=== PATIENT | male | born 1935 | race Hispanic/Latino ===

== ENCOUNTER 2019-03-04 10:03 | Emergency (ER) | payer MEDICARE, OTHER ==
[~2019-03-04] VITALS: Ht 160 cm; Wt 81.8 kg
[~2019-03-04 10:03] MED LIST: ARICEPT10 MG PO; BUTALBITAL/ACETAMIN1 PO; CEFEPIME1 G2 IV; CEFEPIME1 GM IV; CENTRUM SILVER PO; CIPROFLOXACN500 MG PO; CLONAZEPAM0.5 M1 PO; PROSCAR5 MG PO; RISPERDAL0.5 MG PO; ULTRAM50 M1 PO; ZOFRAN ODT4 MG PO
[2019-03-04] MEDS ORDERED: NAPROSYN500 MG PO (12:29)
[2019-03-04 12:52] VITALS: BP 164/95
== END 2019-03-04 13:15 | disposition home or self-care (01) ==
LOC: ED 10:03
PROC: 2W38X1Z Immobilization of Right Upper Extremity using Splint (ICD-10-PCS; principal; 2019-03-04)
DX: S49.001A Unspecified physeal fracture of upper end of humerus, right arm, initial encounter for closed fracture (principal); S42.291A Other displaced fracture of upper end of right humerus, initial encounter for closed fracture; F03.90 Unspecified dementia, unspecified severity, without behavioral disturbance, psychotic disturbance, mood disturbance, and anxiety; W18.30XA Fall on same level, unspecified, initial encounter; Y92.002 Bathroom of unspecified non-institutional (private) residence as the place of occurrence of the external cause

== ENCOUNTER 2020-10-18 19:26 | Inpatient (IN) | payer MEDICARE, MEDICAID ==
[~2020-10-18] VITALS: Ht 160 cm; Wt 77.6 kg
[~2020-10-18 19:26] MED LIST changes: +NAPROSYN500 MG PO
--- NOTE | 2020-10-18 19:26 | NUR ---
PATIENT TO ROOM 9 [facility] STRETCHER. PATIENT WITH EYES CLOSED, RESPONDS TO STIMULI AND PAIN, PATIENT ABLE TO SPEAK BUT NOT WHEN ASKED QUESTIONS. TRIAGE COMPLETED AT BEDSIDE TO BEST OF RN ABILITY.
[2020-10-18 20:09] LABS: HEMATOCRIT 40.6 % (39.0-50.0); HEMOGLOBIN 13.2 g/dl (14.0-18.0); IMMATURE GRANULOCYTES 0.8 % (0.0-5.0); MEAN CELL VOLUME 92.9 fL CALC (80.0-100.0); MEAN CORPUSCULAR HGB 30.2 pG CALC (26.0-32.0); MEAN CORPUSCULAR HGB CONC 32.5 g/dL CAL (32.0-36.0); NEUT# 16.02 thou/uL (1.82-7.42); RED BLOOD COUNT 4.37 mill/uL (4.70-6.10); RED CELL DISTRI WIDTH 12.7 % (11.5-15.5)
--- NOTE | 2020-10-18 20:22 | NUR ---
PATIENT RETURNS FROM RADIOLOGY. ABG DRAWN IN RADIOLOGY. FAMILY AT BEDSIDE.
[2020-10-18 20:27] LABS: ALBUMIN 3.9 g/dL (3.2-5.0); ALKALINE PHOSPHATASE 82 u/l (38-126); BILIRUBIN, TOTAL 0.6 mg/dL (0.0-1.4); BUN 44 mg/dL (8-23); BUN/CREATININE RATIO 24 (12-20 (CALC)); CHLORIDE 106 mmol/l (95-108); CREATININE 1.8 mg/dL (0.7-1.3); ETHYL ALCOHOL 0 mg/dl (0-30); GFR 36 ML/MIN (>=60 (CALC)); GFR FOR AFR.AMER. 44 ML/MIN (>=60 (CALC)); POTASSIUM 4.2 mmol/l (3.5-5.1); SGOT/AST 26 u/l (19-48); SODIUM 139 mmol/l (137-146); TOTAL PROTEIN 7.2 g/dL (6.3-8.2)
[2020-10-18 20:34] LABS: ANION GAP 15 (6-22 (CALC)); CARBON DIOXIDE 22 mmol/l (22-30)
[2020-10-18 20:38] LABS: MYOGLOBIN 253 ng/mL (0 - 121)
--- NOTE | 2020-10-18 23:18 | NUR ---
REPORT TO NURSE JESSICA, MED-SURG.
--- NOTE | 2020-10-18 23:33 | NUR ---
SON WENT HOME. ADVISED OF COVID VISITING RESTRICTIONS. REQUESTED THAT HE CALL WITH LIST OF HOME MEDICATIONS. GIVEN NUMBER TO CALL. PT TO FLOOR VIA STRETCHER WITH POCKET MONITOR AND O2 AT 2 LPM NC. PT TRANSFERRED TO BED WITH 4 STAFF.
[2020-10-19 01:00] VITALS: BP 119/53
--- NOTE | 2020-10-19 03:17 | NUR ---
PT ARRIVE TO [facility] APPROX 2350. PT IS ALERT TO PAIN AND VOICE. CONFUSION NOTED. NOT DISTRESS OF SOB NOTED. PT UNABLE TO ANSWER QUESTION APPROPRIATELY. LUNGS SOUNS DIMISHED. ABDOMEN DISTENDED HYPOTENSIVE BOWEL SOUNDS. UPPER AND LOWER PULSES PRESENT. MIN EDEMA NOTED IN BILAT EXTREM. AGED SCAB ON LEFRT LOWER LEG. BRUISING NOTED BILATERAL FOREARMS. PT INCONT OF BOWEL AND BLADDER. BED IN LOWEST POSITON BED ALARM ACTIVED. CALL LIGHT IN REACH. WILL MONITOR.
[2020-10-19 05:20] VITALS: BP 128/57
[2020-10-19 06:21] LABS: HEMATOCRIT 37.8 % (39.0-50.0); HEMOGLOBIN 11.9 g/dl (14.0-18.0); IMMATURE GRANULOCYTES 1.3 % (0.0-5.0); MEAN CELL VOLUME 94.5 fL CALC (80.0-100.0); MEAN CORPUSCULAR HGB 29.8 pG CALC (26.0-32.0); MEAN CORPUSCULAR HGB CONC 31.5 g/dL CAL (32.0-36.0); NEUT# 18.32 thou/uL (1.82-7.42); RED CELL DISTRI WIDTH 12.8 % (11.5-15.5)
[2020-10-19 06:37] LABS: ALBUMIN 3.2 g/dL (3.2-5.0); BILIRUBIN, TOTAL 0.6 mg/dL (0.0-1.4); CREATININE 1.6 mg/dL (0.7-1.3); POTASSIUM 4.6 mmol/l (3.5-5.1)
[2020-10-19 07:48] VITALS: BP 134/71
--- NOTE | 2020-10-19 07:48 | NUR ---
RECIEVED REPORT FROM YOSHI SCANLON. PT RESTING IN SEMI FOWLERS POSITION TRYING TO GET OUT OF BED UPON ENTERING ROOM. INTRODUCED SELF TO PT AND DISCUSSED POC. PT IS A/O X1 AND DOES ANSWER VERY FEW QUESTIONS.ASSESSMENT AND VITALS COMPLETED. BP 134/71, HR 104, O2 95% ON 2L NC. RESPIRATIONS ARE EVEN AND UNLABORED.NONPRODUCTIVE COUGH NOTED. HEART RHYTHM NORMAL WITH TELE IN PLACE, SR PER ER MONITORING. BOWEL SOUNDS ARE ACTIVE IN ALL QUADRANTS, LAST REPORTED BM IS UNKNOWN. #22G IN LEFT HAND RUNNING WITH IVF PER ORDER, SITE APPEARS HEALTHY AND PATENT. PT INCONTINENT OF URINE, JILL CARE PROVIDED BY INTERNATIONAL ACCOUNT REPRESENTATIVE AND JR MUNOZ. NO SIGNS OF ANY PAIN OR DISCOMFORTS AT THIS TIME. ALL SAFETY AND ISOLATION PRECAUTIONS ARE IN PLACE WITH BED ALARM ACTIVATED. WILL CONTINUE TO MONITOR.
[2020-10-19] MEDS ORDERED: CLONAZEPAM1 M1 PO (10:31)
[2020-10-19] MEDS ORDERED: PROSCAR5 MG PO (10:32)
[2020-10-19] MEDS ORDERED: NAMENDA10 MG PO (10:33)
[2020-10-19] MEDS ORDERED: RIVASTIGMINE T4.5 MG PO (10:35)
--- NOTE | 2020-10-19 10:35 | NUR ---
DAUGHTER CALLED FOR UPDATE. PASSCODE PROVIDED. RECORDS OF HOME MEDICATIONS OBTAINED.
[2020-10-19 11:45] VITALS: BP 136/96
--- NOTE | 2020-10-19 12:22 | NUR ---
PT SLEEPING IN LOW FOWLERS POSITION. REPSIRATIONS ARE EVEN AND UNLABORED ON 2L NC. PT CONTINUE TO REMOVED OXYGEN, REAPPLIED.TELE MONITORING IN PLACE, SR PER ER MONITORING. IVF INFUSING PER ORDER, SITE APPEARS HEALTHY AND PATENT. NO SIGNS OF ANY PAIN OR DISCOMFORTS. ALL SAFETY PRECAUTIONS ARE IN PLACE WIHT CALL LIGHT IN REACH. WILL CONTINUE TO MONITOR
--- NOTE | 2020-10-19 12:58 | NUR ---
DR MALONEY AT BEDSIDE
[2020-10-19 14:28] LABS: URINE BILIRUBIN - DIPSTICK NEGATIVE (NEGATIVE); URINE BLOOD DIPSTICK TRACE-INTACT (NEGATIVE); URINE COLOR YELLOW; URINE GLUCOSE - DIPSTICK NEGATIVE (NEGATIVE); URINE KETONE NEGATIVE (NEGATIVE); URINE LEUK ESTERASE NEGATIVE (NEGATIVE); URINE NITRITE - DIPSTICK NEGATIVE (Negative); URINE PH 6.5 (4.5-8.0); URINE PROTEIN - DIPSTICK NEGATIVE (NEG-TRACE); URINE UROBILINOGEN - DIPSTICK 0.2 E.U./dL (0.2)
--- NOTE | 2020-10-19 15:00 | NUR ---
URINE SAMPLE COLLECTED AND SENT TO LAB
--- NOTE | 2020-10-19 15:05 | NUR ---
ATTEMPTED TO START NEW IV. UNSUCCESSFUL X2. PT TOLERATED WELL. #20G IN LEFT HAND REMAINS. IVF INFUSING PER ORDER, SITE APPEARS HEALTHY AND PATENT.
[2020-10-19 15:30] VITALS: BP 136/75
--- NOTE | 2020-10-19 15:34 | NUR ---
PT SLEEPING IN SEMI FOWLERS POSITION. REPSIRATIONS ARE EVEN AND UNLABORED ON 2L NC. PT CONTINUE TO REMOVED OXYGEN TUBING. NURSING STAFF CONTINUE TO REAPPLY. IVF INFUSING PER ORDER, SITE APPEARS HEALTHY AND PATENT, SITE APPEARS HEALTHY AND PATENT. NO SIGNS OF ANY PAINS OR DISCOMFORTS. ALL SAFETY AND ISOLATION PRECAUTIONS ARE IN PLACE WIHT BED ALARM ACTIVATED. WILL CONTINUE TO MONITOR
[2020-10-19 19:30] VITALS: BP 130/73
--- NOTE | 2020-10-19 20:03 | NUR ---
PHYSICAL ASSESMENT COMPLETE. PT CURRENTLY DENIES PAIN OR DISCOMFORT. SCHEDULED MEDICATIONS AND PRN MEDICATION ADMINISTERED, SEE E-MAR. PT DENIES ANY NEEDS AT THIS TIME. PT ONLY ALERT TO SELF.ITEMS WITHIN REACH, BED LOCKED IN LOW POSITION W/ BEDRAILS UP X2. CALL RAYMOND WITHIN REACH, AGREES TO CALL PRN.
--- NOTE | 2020-10-20 00:03 | NUR ---
PT LAYING IN BED WITH EYES CLOSED, APPEARS TO BE SLEEPING, APPEARS COMFORTABLE AND IN NO DISTRESS. RESPIRATIONS REGULAR AND UNLABORED. ITEMS REMAIN WITHIN REACH, CALL RAYMOND REMAINS WITHIN REACH. BED REMAINS LOCKED AND IN LOW POSITION WITH BEDRAILS UP X2. WILL CONTINUE TO MONITOR.
[2020-10-20 00:28] VITALS: BP 133/70
--- NOTE | 2020-10-20 04:03 | NUR ---
PT RESTING IN BED, NO SIGNS OF DISTRESS NOTED, RESP EVEN AND UNLABORED. PT VOICES NO NEEDS OR COMPLAINTS AT THIS TIME. CALL LIGHT IN REACH, CONTINUE TO MONITOR.
[2020-10-20 04:10] VITALS: BP 135/64
[2020-10-20 05:00] LABS: HEMOGLOBIN 12.4 g/dl (14.0-18.0); IMMATURE GRANULOCYTES 1.6 % (0.0-5.0); MEAN CORPUSCULAR HGB 29.9 pG CALC (26.0-32.0); MEAN CORPUSCULAR HGB CONC 31.8 g/dL CAL (32.0-36.0); NEUT# 6.54 thou/uL (1.82-7.42); RED BLOOD COUNT 4.15 mill/uL (4.70-6.10); RED CELL DISTRI WIDTH 12.8 % (11.5-15.5)
[2020-10-20 05:11] LABS: ALBUMIN 3.3 g/dL (3.2-5.0); BILIRUBIN, TOTAL 0.5 mg/dL (0.0-1.4); CREATININE 1.4 mg/dL (0.7-1.3); POTASSIUM 4.4 mmol/l (3.5-5.1); TOTAL PROTEIN 6.4 g/dL (6.3-8.2)
[2020-10-20 05:22] LABS: C-REACTIVE PROTEIN 17.7 mg/dL (0-0.9)
[2020-10-20 07:48] VITALS: BP 133/56
--- NOTE | 2020-10-20 07:48 | NUR ---
RECIEVED REPORT FROM YOSIH FITZGERALD. PT RESTING IN SEMI FOLWERS POSITION UPON ENTERING ROOM. INTRODUCED SELF TO PT AND DISCUSSED POC. PT IS A/O X1 BUT CONFUSED. ASSESSMENT AND VITALS COMPLETED. BP 133/56, HR 97, O2 97% ON ROOM AIR. 2L NC AT BEDSIDE PRN. RESPIRATIONS ARE EVEN AND UNLABORED WITH NO SIGNS OF DISTRESS NOTED. HEART RHYTHM IS NORMAL WITH TELE IN PLACE, SR PER ER MONITORING. BOWEL SOUNDS ARE ACTIVE IN ALL QUADRANTS, LAST REPORTED BM IS UNKNOWN. RADIAL PEDAL PULSES ARE STRONG. #20G EMS IN LEFT HAND RUNNING WITH PER ORDER, SITE APPEARS HEALTHY AND PATENT. SITE DUE TO BE CHANGED TODAY.MULITPLE SMALL ABRASION THROUGH BODY NOTED. SKIN REMAINS WARM DRY AND INTACT. PT DENIES OF ANY PAINS OR DISOCMFORTS AST THIS TIME.ALL SAFETY AND ISOLATION P[RECAUTIONS ARE IN PLACE WIHT CALL LIGHT IN REACH. WILL CONTINUE TO MONITOR
--- NOTE | 2020-10-20 10:38 | NUR ---
ATTEMPTED TO CALL DAUGHTER TO NOTIFIED OF HOME MEDICATION RIVASTIGMINE. NO ANSWER. WILL ATTEMPT AGAIN LATER IN AFTERNOON
--- NOTE | 2020-10-20 10:50 | NUR ---
DR WORKMAN AT BEDSIDE. YI ORTIZ OT TRANSLATE.
--- NOTE | 2020-10-20 11:00 | NUR ---
FAMILY CONTACTED ABOUT HOME MEDICATION THAT WAS NEEDED TO BROUGHT IN. FAMILY VERBALIZED UNDERSTANDING.
--- NOTE | 2020-10-20 11:38 | NUR ---
HOME MEDICATION BROUGHT TO HOSPITAL. MEDICATION SENT TO PHARMACY.
[2020-10-20 12:00] VITALS: BP 128/70
[2020-10-20 16:00] VITALS: BP 131/66
--- NOTE | 2020-10-20 16:09 | NUR ---
CERTIFIER NOTFIED OF TELE MONITORING NO WORKING. NEW LEADS OBTAINED, STILL NOT WORKING. NEW BOX TO BE OBTAINED.
--- NOTE | 2020-10-20 17:00 | NUR ---
PT TRANSFER FROM ROOM 282 TO ROOM 273 DUE TO NEGATIVE COVID SWAB. PT SETTLED INTO ROOM. RESPIRATIONS REMAINS EVEN AND UNLABRED ON ROOM AIR. NO SIGNS OF ANY PAIN OR DISCOMFORTS AT THIS TIME. ALL SAFETY PRECAUTIONS ARE IN PLACE WIHT CALL LIGHT IN REACH. WILL CONTINUE TO MONITOR
--- NOTE | 2020-10-20 17:15 | NUR ---
ATTEMPTED TO START NEW IV. UNSUCCESSFUL X2. ANOTHER NUSE TO TRY
--- NOTE | 2020-10-20 18:11 | NUR ---
NEW #22G STARTED IN RFA IV SITE APPEARS HEALTHY AND PATENT. IVF INFUSING PER ORDER. PT TOELRATED WELL.
[2020-10-20 19:00] VITALS: BP 145/77
--- NOTE | 2020-10-20 20:01 | NUR ---
PHYSICAL ASSESMENT COMPLETE. PT CURRENTLY DENIES PAIN OR DISCOMFORT. SCHEDULED MEDICATIONS AND PRN MEDICATION ADMINISTERED, SEE E-MAR. PT DENIES ANY NEEDS AT THIS TIME. ITEMS WITHIN REACH, BED LOCKED IN LOW POSITION W/ BEDRAILS UP X2. CALL RAYMOND WITHIN REACH, AGREES TO CALL PRN.
--- NOTE | 2020-10-21 00:07 | NUR ---
REPORT RECEIVED FROM Abdias WYNNE RN AND CARE ASSUMED.
--- NOTE | 2020-10-21 00:15 | NUR ---
PATIENT RESTING QUIETLY WITH EYES CLOSED. IV FLUIDS INFUSING ORDERED. NO DISTRESS NOTED. O2 @ 2L/MIN VIA NASAL CANNULA.
--- NOTE | 2020-10-21 00:18 | NUR ---
SIDE RAILS UP X 2, BED REMAINS IN LOWEST POSITION,. CALL RAYMOND WITHIN REACH BUT WILL CONTINUE TO MONITOR CLOSELY DUE TO DEMENTIA.
--- NOTE | 2020-10-21 03:59 | NUR ---
RESTING QUIETLY WITHOUT NOTICEABLE DISTRESS. RESPIRATIONS EASY AND UNLABORED. WILL CONTINUE TO MONITOR.
[2020-10-21 04:00] VITALS: BP 136/85
--- NOTE | 2020-10-21 05:31 | NUR ---
REPORT TO Callum MORE RN.
[2020-10-21 07:05] VITALS: BP 128/72
--- NOTE | 2020-10-21 09:00 | NUR ---
PT SEEN AWAKE, ALERT, ORIENTED TO SELF. PT HAS DEMENTIA. LUNGS DIMINISHED, SLIGHT COARSENESS HEARD THROUGHOUT LUNG GARZA. NO EVIDENCE OF DISTRESS, NO COMPLAINTS.
[2020-10-21] MEDS ORDERED: DOXYCYCL HYC100 MG PO (10:11)
--- NOTE | 2020-10-21 12:39 | NUR ---
PT DISCHARGED TO HOME. FAMILY MEMBER IN VEHICLE VERBALIZES UNDERSTANDING OF DC INSTRUCTIONS, PT LEAVES [facility] IN STABLE CONDITION. PT LEAVES WITH "PT'S OWN MED" FROM HIS [facility] WORK[facility] MED ROOM AND NEW RX FOR ANTIBIOTIC.
== END 2020-10-21 12:15 | disposition home or self-care (01) | DRG 195 ==
LOC: ED 19:26 → ED-I 21:20 → ED 21:50 → MS2 21:51
PROVIDERS: Emergency Medicine; Nurse Practitioner; Nurse Practitioner Family; ADMIT Internal Medicine; ATTEND Internal Medicine
DX: J18.9 Pneumonia, unspecified organism (principal); G30.9 Alzheimer's disease, unspecified; F02.80 Dementia in other diseases classified elsewhere, unspecified severity, without behavioral disturbance, psychotic disturbance, mood disturbance, and anxiety; R09.02 Hypoxemia; N40.0 Benign prostatic hyperplasia without lower urinary tract symptoms; Z86.73 Personal history of transient ischemic attack (TIA), and cerebral infarction without residual deficits; Z20.828 Contact with and (suspected) exposure to other viral communicable diseases
CPT/HCPCS: J1650; J2060

== ENCOUNTER 2022-08-21 14:00 | Observation (INO) | payer MEDICARE, OTHER ==
[2022-08-21] VITALS (17 sets, daily range): BP systolic 117–149; BP diastolic 64–119
[~2022-08-21] VITALS: Ht 160 cm; Wt 63.0 kg
[~2022-08-21 14:00] MED LIST changes: +AZITHROMYCIN500 MG PO; +DICLOFENAC SODI75 MG PO; +DOXYCYCL HYC100 MG PO; +IPRATROPIU0.5 MG/3 M IN; +KLONOPIN0.5 M1 PO; +NAMENDA10 MG PO; +OMNICEF300 M1 PO; +RIVASTIGMINE T4.5 MG PO
[2022-08-21 14:27] LABS: HEMATOCRIT 36.8 % (39.0-50.0); HEMOGLOBIN 11.6 g/dl (14.0-18.0); IMMATURE GRANULOCYTES 2.1 % (0.0-5.0); MEAN CELL VOLUME 92.2 fL CALC (80.0-100.0); MEAN CORPUSCULAR HGB 29.1 pG CALC (26.0-32.0); MEAN CORPUSCULAR HGB CONC 31.5 g/dL CAL (32.0-36.0); NEUT# 5.58 thou/uL (1.82-7.42); RED BLOOD COUNT 3.99 mill/uL (4.70-6.10); RED CELL DISTRI WIDTH 13.8 % (11.5-15.5)
[2022-08-21 15:18] LABS: ALBUMIN 3.3 g/dL (3.2-5.0); ALKALINE PHOSPHATASE 119 u/l (38-126); ANION GAP 14 (6-22 (CALC)); BUN 47 mg/dL (8-23); BUN/CREATININE RATIO 37 (12-20 (CALC)); CARBON DIOXIDE 24 mmol/l (22-30); CHLORIDE 107 mmol/l (95-108); CREATININE 1.3 mg/dL (0.7-1.3); GFR FOR AFR.AMER. > 60 ML/MIN (>=60 (CALC)); GFR OTHER RACES 52 ML/MIN (>=60 (CALC)); POTASSIUM 4.1 mmol/l (3.5-5.1); SGOT/AST 53 u/l (19-48); SODIUM 142 mmol/l (137-146); TOTAL PROTEIN 6.8 g/dL (6.3-8.2)
[2022-08-21 15:23] LABS: BILIRUBIN, TOTAL 0.2 mg/dL (0.0-1.4)
[2022-08-21 16:01] LABS: URINE BILIRUBIN - DIPSTICK NEGATIVE (NEGATIVE); URINE BLOOD DIPSTICK TRACE-INTACT (NEGATIVE); URINE COLOR YELLOW; URINE GLUCOSE - DIPSTICK NEGATIVE (NEGATIVE); URINE KETONE NEGATIVE (NEGATIVE); URINE LEUK ESTERASE NEGATIVE (NEGATIVE); URINE PROTEIN - DIPSTICK TRACE mg/dL (NEG-TRACE)
[2022-08-21 16:03] LABS: URINE NITRITE - DIPSTICK NEGATIVE (Negative)
[2022-08-22 04:27] VITALS: BP 130/71
[2022-08-22 05:13] LABS: HEMATOCRIT 34.4 % (39.0-50.0); HEMOGLOBIN 10.6 g/dl (14.0-18.0); IMMATURE GRANULOCYTES 4.8 % (0.0-5.0); MEAN CELL VOLUME 93.2 fL CALC (80.0-100.0); MEAN CORPUSCULAR HGB 28.7 pG CALC (26.0-32.0); MEAN CORPUSCULAR HGB CONC 30.8 g/dL CAL (32.0-36.0); NEUT# 4.95 thou/uL (1.82-7.42); RED BLOOD COUNT 3.69 mill/uL (4.70-6.10); RED CELL DISTRI WIDTH 13.8 % (11.5-15.5)
[2022-08-22 05:26] LABS: ANION GAP 14 (6-22 (CALC)); BUN 44 mg/dL (8-23); BUN/CREATININE RATIO 38 (12-20 (CALC)); CARBON DIOXIDE 26 mmol/l (22-30); CHLORIDE 107 mmol/l (95-108); CREATININE 1.2 mg/dL (0.7-1.3); GFR FOR AFR.AMER. > 60 ML/MIN (>=60 (CALC)); GFR OTHER RACES 57 ML/MIN (>=60 (CALC)); POTASSIUM 4.2 mmol/l (3.5-5.1); SODIUM 143 mmol/l (137-146)
[2022-08-22 06:31] VITALS: BP 118/64
[2022-08-22 07:34] VITALS: BP 118/64
[2022-08-22 14:24] VITALS: BP 106/55
[2022-08-22 14:43] VITALS: BP 106/55
[2022-08-22 19:03] VITALS: BP 135/57
== END 2022-08-22 20:35 | disposition hospice, home (50) ==
LOC: ED 14:00 → ED-I 14:31 → ED 17:41 → MS2 17:42
PROVIDERS: Nurse Practitioner; ADMIT Internal Medicine; ATTEND Internal Medicine
PROC: 0HD6XZZ Extraction of Back Skin, External Approach (ICD-10-PCS; principal; 2022-08-22)
DX: R62.7 Adult failure to thrive (principal); L89.154 Pressure ulcer of sacral region, stage 4; L89.629 Pressure ulcer of left heel, unspecified stage; F03.918 Unspecified dementia, unspecified severity, with other behavioral disturbance; R32 Unspecified urinary incontinence; R15.9 Full incontinence of feces; N40.0 Benign prostatic hyperplasia without lower urinary tract symptoms; Z51.5 Encounter for palliative care; Z86.73 Personal history of transient ischemic attack (TIA), and cerebral infarction without residual deficits; Z74.01 Bed confinement status; Z20.822 Contact with and (suspected) exposure to COVID-19
CPT/HCPCS: J1650

== ENCOUNTER 2023-01-09 20:27 | Emergency (ER) | payer MEDICARE, OTHER ==
[2023-01-09] VITALS (14 sets, daily range): BP systolic 92–133; BP diastolic 54–84
[~2023-01-09] VITALS: Ht 160 cm; Wt 53.4 kg
[2023-01-09 21:23] LABS: BASO% 0.1 % (0-3); EOS% 0.1 % (0-8); HEMATOCRIT 37.5 % (39.0-50.0); HEMOGLOBIN 11.3 g/dl (14.0-18.0); IMMATURE GRANULOCYTES 1.8 % (0.0-5.0); LYMPH% 4.5 % (15-41); MEAN CORPUSCULAR HGB 26.1 pG CALC (26.0-32.0); MEAN CORPUSCULAR HGB CONC 30.1 g/dL CAL (32.0-36.0); MONO% 7.5 % (2-13); NEUT# 13.24 thou/uL (1.82-7.42); RED BLOOD COUNT 4.33 mill/uL (4.70-6.10)
[2023-01-09 21:25] LABS: MEAN CELL VOLUME 86.6 fL CALC (80.0-100.0)
[2023-01-09 21:39] LABS: ALBUMIN 3.1 g/dL (3.2-5.0); ALKALINE PHOSPHATASE 89 u/l (38-126); ANION GAP 13 (6-22 (CALC)); BILIRUBIN, TOTAL 0.3 mg/dL (0.2-1.3); BUN 29 mg/dL (8-23); BUN/CREATININE RATIO 25 (12-20 (CALC)); CARBON DIOXIDE 25 mmol/l (22-30); CHLORIDE 101 mmol/l (95-108); CREATININE 1.2 mg/dL (0.7-1.3); GFR FOR AFR.AMER. > 60 ML/MIN (>=60 (CALC)); GFR OTHER RACES 57 ML/MIN (>=60 (CALC)); SGOT/AST 28 u/l (19-48); SODIUM 135 mmol/l (137-146)
[2023-01-09] MEDS ORDERED: ONDANSETRON4 MG PO (23:49)
[2023-01-10] VITALS (10 sets, daily range): BP systolic 110–136; BP diastolic 60–87
== END 2023-01-10 02:23 | disposition home or self-care (01) ==
LOC: ED 20:27
PROVIDERS: Family Medicine
DX: D72.829 Elevated white blood cell count, unspecified (principal); R62.7 Adult failure to thrive; R11.2 Nausea with vomiting, unspecified; F03.90 Unspecified dementia, unspecified severity, without behavioral disturbance, psychotic disturbance, mood disturbance, and anxiety; Z86.73 Personal history of transient ischemic attack (TIA), and cerebral infarction without residual deficits; Z20.822 Contact with and (suspected) exposure to COVID-19